=== PATIENT | male | born 1985 | race Caucasian/White ===

== ENCOUNTER 2018-02-03 19:51 | Emergency (ER) | payer OTHER ==
[2018-02-03] MEDS ORDERED: Ondansetron 4 MG Tab.DIS PO ONE (20:45)
--- NOTE | 2018-02-03 21:20 | EDM.PDOC ---
ED HPI GENERAL MEDICAL PROBLEM - General Chief Complaint: Abdominal Pain Stated Complaint: ABD PAINS Time Seen by Provider: 02/03/18 20:30 Source of Information: Reports: Patient, Family History Limitations: Reports: No Limitations - History of Present Illness INITIAL COMMENTS - FREE TEXT/NARRATIVE: 32-year-old male who developed some abdominal cramping and one episode of diarrhea about 5 hours ago, and developed some upper abdominal pressure radiating to the back and vomited once. He then came into the emergency room. He looks comfortable but still says he has some abdominal cramping, feels full, with some mild nausea. He has been exposed to some coworkers who have had gastrointestinal flu , but he is concerned that it seems at least once a month he has one night where he struggles with abdominal pain and cramps that last all night until the next day. He has never brought this up with his primary provider, he does not take any antacids or other medications. The only surgery he's had was a hernia surgery when he was a baby. Onset: Today Duration: Hour(s): (5 hours ago) Location: Reports: Abdomen Quality: Reports: Ache, Pressure, Other (Cramping) Severity: Mild (Especially upper abdomen) Associated Symptoms: Reports: Malaise, Nausea/Vomiting, Other (Some radiation of pain to his back). Denies: Chest Pain, Cough, Fever/Chills, Shortness of Breath Abdomen Pain Score (Numeric/FACES): 5 - Related Data Allergies Allergy/AdvReac Type Severity Reaction Status Date / Time No Known Allergies Allergy Verified 02/03/18 20:12 Home Meds: Home Meds NK [No Known Home Meds] 02/03/18 [History] Past Medical History HEENT History: Reports: Impaired Vision Respiratory History: Reports: Asthma Gastrointestinal History: Reports: Other (See Below) Other Gastrointestinal History: Recent episodes of abdomenal cramping past 2months. Genitourinary History: Reports: Other (See Below) Other Genitourinary History: past uti Musculoskeletal History: Reports: Fracture Other Musculoskeletal History: fx l wrist - Past Surgical History HEENT Surgical History: Reports: Tonsillectomy Social & Family History - Tobacco Use Smoking Status *Q: Never Smoker Second Hand Smoke Exposure: No - Caffeine Use Caffeine Use: Reports: Coffee, Soda - Alcohol Use Days Per Week of Alcohol Use: 0 - Recreational Drug Use Recreational Drug Use: No ED ROS GENERAL - Review of Systems Review Of Systems: See Below Constitutional: Denies: Fever, Chills Respiratory: Denies: Shortness of Breath Cardiovascular: Denies: Chest Pain GI/Abdominal: Reports: Abdominal Pain, Diarrhea, Nausea, Vomiting. Denies: Constipation, Distension : Reports: No Symptoms Musculoskeletal: Reports: No Symptoms Skin: Reports: No Symptoms Neurological: Reports: No Symptoms. Denies: Headache Psychiatric: Reports: No Symptoms ED EXAM, GI/ABD - Physical Exam Exam: See Below Exam Limited By: No Limitations General Appearance: Alert, No Apparent Distress Eyes: Bilateral: Normal Appearance (No jaundice) Throat/Mouth: Normal Inspection Head: Atraumatic Respiratory/Chest: No Respiratory Distress, Lungs Clear Cardiovascular: Regular Rate, Rhythm GI/Abdominal Exam: Normal Bowel Sounds, Soft, Other (Patient really doesn't have any significant tenderness to palpation of the abdomen) Course - Vital Signs Last Recorded V/S: Last Vital Signs Temp 94.8 F L 02/03/18 20:19 Pulse 78 02/03/18 20:19 Resp 16 02/03/18 20:19 BP 154/65 H 02/03/18 20:19 Pulse Ox 98 02/03/18 20:19 - Orders/Labs/Meds Labs: Laboratory Tests 02/03/18 02/03/18 Range/Units 20:53 20:53 WBC 11.7 H (4.5-11.0) K/uL RBC 5.07 (4.30-5.90) M/uL Hgb 15.3 H (12.0-15.0) g/dL Hct 44.5 (40.0-54.0) % MCV 88 (80-98) fL MCH 30 (27-31) pg MCHC 34 (32-36) % Plt Count 123 L (150-400) K/uL Neut % (Auto) 67 H (36-66) % Lymph % (Auto) 23 L (24-44) % [place] % (Auto) 8 H (2-6) % Eos % (Auto) 3 (2-4) % Baso % (Auto) 0 (0-1) % Sodium 143 (140-148) mmol/L Potassium 4.2 (3.6-5.2) mmol/L Chloride 106 (100-108) mmol/L Carbon Dioxide 27 (21-32) mmol/L Anion Gap 10.1 (5.0-14.0) mmol/L BUN 16 (7-18) mg/dL Creatinine 1.2 (0.8-1.3) mg/dL Est Cr Clr Drug Dosing 101.72 mL/min Estimated GFR (MDRD) > 60 (>60) Glucose 105 (74-106) mg/dL Calcium 8.9 (8.5-10.1) mg/dL Total Bilirubin 0.5 (0.2-1.0) mg/dL AST 25 (15-37) U/L ALT 44 (12-78) U/L Alkaline Phosphatase 45 L (46-116) U/L Total Protein 7.3 (6.4-8.2) g/dL Albumin 4.1 (3.4-5.0) g/dL Globulin 3.2 (2.3-3.5) g/dL Albumin/Globulin Ratio 1.3 (1.2-2.2) Meds: Medications Discontinued Medications Generic Name Dose Route Start Last Admin Trade Name Freq PRN Reason Stop Dose Admin Ondansetron HCl 4 mg 02/03/18 20:45 02/03/18 21:38 Zofran Odt PO 02/03/18 20:46 4 mg ONETIME ONE Administration - Re-Assessments/Exams Free Text/Narrative Re-Assessment/Exam: 02/03/18 21:27 Patient was given 4 mg of sublingual Zofran, and a CBC, CMP were obtained. 02/03/18 21:28 His entire chemistry profile was normal. White count was 11.7. When asked the patient to use daily Prilosec for one month and return if worsening. He was given his first 20 mg dose. A prescription for 42 additional doses to take once daily was given to the patient. He can return anytime if not improving satisfactorily. Departure - Departure Time of Disposition: 21:52 Disposition: Home, Self-Care 01 Condition: Good Clinical Impression: Abdominal pain Qualifiers: Abdominal location: upper abdomen, unspecified Qualified Code(s): R10.10 - Upper abdominal pain, unspecified - Discharge Information Instructions: Abdominal Pain, Adult, [id number] Referrals: Shikha Dela Cruz PA [Primary Care Provider] - Forms: ED Department Discharge Care Plan Goals: Take one dose of omeprazole before a meal daily for at least the next 2-3 weeks and continue if improving. Advance diet as tolerated and return anytime if worsening or you develop other concerns.
== END 2018-02-03 21:52 | disposition home or self-care (01) ==
LOC: JP.ED 19:51
DX: R10.10 Upper abdominal pain, unspecified (principal); J45.909 Unspecified asthma, uncomplicated
CPT/HCPCS: 36415; 80053; 85025; 99284; A9270

== ENCOUNTER 2018-05-12 06:04 | Day surgery (SDC) | payer OTHER ==
[2018-05-12] MEDS ORDERED: Albuterol/Ipratropium 3.0-0.5 MG/3 ML Neb Soln NEB ONE (06:27)
[2018-05-12] MEDS ORDERED: Acetaminophen 500 MG Tab PO ONE (06:28)
[2018-05-12] MEDS ORDERED: Ampicillin/Sulbactam Na 3 GM in Sodium Chloride 0.9% 100 ML IV ONE ×2 (06:28→08:30)
[2018-05-12] MEDS ORDERED: Bupivacaine 0.5%/EPINEPHrine 1:200,000 50 ML MDV ONE (06:50)
[2018-05-12] MEDS: Dextrose 5%-Lactated Ringers 1,000 ML IV SCH ×4 (07:22→22:10)
[2018-05-12] MEDS ORDERED: Glycopyrrolate 0.2 MG/ML 5 ML MDV ONE (07:30)
[2018-05-12] MEDS ORDERED: Propofol 200 MG/20 ML SDV ONE (07:30)
[2018-05-12] MEDS ORDERED: fentaNYL 250 MCG/5 ML SDV ONE (07:30)
[2018-05-12] MEDS ORDERED: Rocuronium 50 MG/5 ML Vial ONE ×2 (07:30→09:27)
[2018-05-12] MEDS ORDERED: Dexamethasone 4 MG/ML SDV ONE (07:30)
[2018-05-12] MEDS ORDERED: Neostigmine Methylsulfate 1 MG/ML 5 ML Syringe ONE (07:30)
[2018-05-12] MEDS ORDERED: Ondansetron 4 MG/2 ML SDV ONE (07:30)
[2018-05-12] MEDS ORDERED: HYDROmorphone/Normal Saline 15 MG/30 ML PCA IV PRN (07:57)
[2018-05-12] MEDS ORDERED: Naloxone 0.4 MG/ML SDV IV PRN (08:01)
[2018-05-12] MEDS ORDERED: Ketamine 500 MG/5 ML MDV IV SCH (08:30)
[2018-05-12] MEDS ORDERED: Ropivacaine 58 ML, Dexamethasone 8 MG, EPINEPHrine 0.4 MG, Sodium Chloride 0.9% 19.6 ML NERVRT SCH ×4 (08:30)
[2018-05-12] MEDS ORDERED: fentaNYL 100 MCG/2 ML SDV ONE (10:11)
[2018-05-12] MEDS ORDERED: Lactated Ringers 1,000 ML ONE (10:23)
[2018-05-12] MEDS ORDERED: Albuterol/Ipratropium 3.0-0.5 MG/3 ML Neb Soln INH PRN (12:00)
[2018-05-12] MEDS ORDERED: Ondansetron 4 MG/2 ML SDV IVPUSH PRN (12:00)
[2018-05-12] MEDS ORDERED: Pantoprazole 40 MG Vial IVPUSH SCH (14:00)
[2018-05-12] MEDS: cefOXitin 2 GM in Sodium Chloride 0.9% 50 ML IV SCH ×2 (14:32→20:28)
[2018-05-12] MEDS: Albuterol/Ipratropium 3.0-0.5 MG/3 ML Neb Soln INH SCH ×2 (14:41→20:28)
[2018-05-12] MEDS ORDERED: Montelukast 10 MG Tab PO SCH (21:00)
[2018-05-12] MEDS ORDERED: Scopolamine 1.5 MG Transdermal Patch TRDERM PRN (22:54)
[2018-05-13] MEDS: Acetaminophen/HYDROcodone 325-5 MG Tab PO PRN ×2 (02:47→06:48)
[2018-05-13] MEDS: cefOXitin 2 GM in Sodium Chloride 0.9% 50 ML IV SCH ×2 (02:47→07:05)
[2018-05-13] MEDS ORDERED: Calcium Carbonate 500 MG Tab.Chew PO PRN (05:33)
[2018-05-13] MEDS: Albuterol/Ipratropium 3.0-0.5 MG/3 ML Neb Soln INH SCH (07:27)
[2018-05-13] MEDS ORDERED: SCOPOLAMINE PATCH CHECK TOP SCH (09:00)
--- NOTE | 2018-05-13 10:13 | OR ---
DATE OF PROCEDURE: 05/12/2018 PREOPERATIVE DIAGNOSES: Subacute and chronic cholecystitis and cholelithiasis. POSTOPERATIVE DIAGNOSES: 1. Subacute and chronic cholecystitis and cholelithiasis with pericholecystic abscess/inflammatory fluid collection. 2. Incarcerated umbilical hernia. 3. Complex cystic mass, right lobe of liver. OPERATIVE PROCEDURES: Diagnostic laparoscopy with: 1. Cholecystectomy (23484). 2. Drainage of pericholecystic inflammatory fluid collection (46228). 3. Repair of incarcerated umbilical hernia (87532). 4. Partial right hepatic lobectomy for resection of complex cystic mass involving right lobe of liver (29003). ANESTHESIA: General. [employer]AP: Holly Bang PA-C and EVER Barbosa. INDICATIONS FOR PROCEDURE: A 32-year-old recently presenting with recurrent episodes of biliary colic. Ultrasound was obtained which showed a stone impacted in the gallbladder neck. Initially, we tried to treat this by dietary limitations and such, open to get through the summer while his appointment is quite busy. Now, he has been, however, having increasing problems with episodes of biliary colic and presents now for a cholecystectomy. Potential risks of the procedure including bleeding, infection, injury to underlying viscera such as common bile duct, possible migration of stones in the common bile duct requiring additional procedures for correction as well as remote possibility of cardiopulmonary, septic, or hemorrhagic complications leading to were discussed, and the patient wishes to proceed. DETAILS OF PROCEDURE: The patient was taken to the operating room and placed in a supine position. After general endotracheal anesthesia was induced, the abdomen was prepped and draped. A transverse epigastric incision was made and peritoneal cavity entered under direct vision with an Optiview trocar, inflated to 15 mmHg pressure with CO2. Laparoscope was reinserted. No underlying trocar insertion site injuries were seen. Attention was then taken to the subumbilical trocar site and palpation of this area revealed an incarcerated umbilical hernia, containing roughly a grape-sized area of incarcerated preperitoneal fat. A subumbilical incision was made and that area was dissected free and the tissue involving the hernia was then excised and sent for specimen. This allowed an easy passage of the 12 mm trocar through the fascial defect. One 5 mm trocar was then placed in the right upper quadrant area as well. As one retracted the gallbladder, some purulent material was noted posterior to the gallbladder which was associated with focal intense inflammation. This was evacuated and cultures were sent. Gallbladder itself was subacutely inflamed, being quite edematous, intensely distended. The gallbladder was initially opened up and clear bile removed, indicating a retracted portion in terms of cystic duct occlusion by the stone. This allowed retraction of the gallbladder laterally and anteriorly. Dissection was continued around the gallbladder neck and cystic duct junction, as well as the adjacent cystic artery were both identified. The cystic duct and gallbladder junction, which was immediately adjacent to the area of the impacted stone was divided with a DEANNA mendez load. The latter was used as the tissues were quite friable and it was felt clips might tear through those tissues. Following this division, the cystic artery was clipped 3 times proximally and divided with Harmonic scalpel. The gallbladder was dissected off the gallbladder bed and sent through the epigastric trocar site. This contained roughly an olive-sized size stones as expected. One additional finding was that of a complex cystic lesion which appeared to be multifocal and looked quite sclerotic over the right hepatic lobe and somewhat less in the right inferior lateral angle of the liver at that level. No additional cystic lesions were seen and based on the appearance, it was felt to be best resected to rule out any neoplastic changes. A partial right hepatic lobectomy which included removal of the cyst intact, was then accomplished with a series of DEANNA black and purple chris. The specimen was then placed in a specimen bag and delivered for pathologic review. The staple lines were then reinforced with electrocautery until no bleeding was seen and then reinforced with fibrin sealant. At this point, no further problems were noted. The camera port was then brought up to the gastric site again and the repair of the umbilical hernia was accomplished with a series of 0 Ethibond sutures placed in the fascia, closing this in a transverse orientation. A Dwain-Higginbotham drain was then placed through the right lateral trocar site and positioned in the gallbladder bed at the area of the liver resection, and the remaining trocars were removed. The fascia at that level was closed with 0 Vicryl stitch and the skin at each incision with 4-0 Vicryl skin stitch, drains fixed with 4-0 Vicryl stitch as well. The patient was taken to the recovery room in satisfactory condition. Physician project assistant, Holly Bang, played an essential role in assisting in this case, helping to position the patient, retract structures as needed as well as suturing and cutting sutures when indicated. Her presence improved the patient's safety and decreased operative time. Sin Sandoval MD Job #: [id number]
--- NOTE | 2018-05-13 14:05 | DISCH ---
ADMISSION DIAGNOSES: Subacute chronic cholecystitis and cholelithiasis. DISCHARGE DIAGNOSES: Diagnostic laparoscopy with cholecystectomy, drainage of pericholecystic infected fluid collection, repair of incarcerated umbilical hernia, partial right hepatic lobectomy, resection of complex cystic lesion of liver for subacute chronic cholecystitis and cholelithiasis, incarcerated umbilical hernia, purulent pericholecystic inflammatory fluid collection, and complex cystic lesion right lobe of liver. HISTORY: Rupert Hamilton is a 32-year-old male with right upper quadrant abdominal pain. After preoperative evaluation and discussion of possible risks and possible complications, he wished to proceed with surgical procedure. HOSPITAL COURSE: Rupert had his surgery on 05/12/2018. He had no operative complications. On postoperative day #1, vital signs were stable, pain was managed, his activity was good, and oral intake was adequate. He was able to be discharged to home. PHYSICAL EXAMINATION: GENERAL: Rupert Hamilton is a 32-year-old male. VITAL SIGNS: Height is 6 feet 2 inches. Weight is 251 pounds. TPR is 98, 75, 18, and blood pressure 135/63. HEENT: Negative. NECK: Supple. HEART: Regular rate and rhythm. LUNGS: Clear. ABDOMEN: Incisions look good. Abdominal binder is on. NAYELY drain was removed. 4 x 4 placed over NAYELY drain site. EXTREMITIES: Without peripheral edema. DISPOSITION: Discharged to home. CONDITION: Stable and improving. FOLLOWUP: Followup appointment with Holly Bang PA-C, at [facility] on 05/22/2018 at 10 a.m. DISCHARGE MEDICATIONS: New Prescriptions: [place] 5/325 mg 1 to 2 tabs every 4 hours p.r.n. pain, #30. DISCHARGE DIET: Usual diet as tolerated. Drink 8 to 10 glasses of water a day. ACTIVITY: No lifting more than 10 pounds for 2 weeks[address], do not drive while on pain medication. Shower/bathing, may shower. Keep site clean and dry. Wear abdominal binder for 2 weeks and then as tolerated. DISCHARGE INSTRUCTIONS: Special instruction, use incentive spirometer 10 times every hour while awake for one week.
== END 2018-05-13 09:21 | disposition home or self-care (01) ==
LOC: JP.SDS 06:04 → JP.2SS 10:40 → JP.SDS 05-13 09:21
PROVIDERS: ATTEND Surgery
DX: K80.12 Calculus of gallbladder with acute and chronic cholecystitis without obstruction (principal); K42.0 Umbilical hernia with obstruction, without gangrene; R16.0 Hepatomegaly, not elsewhere classified; K76.0 Fatty (change of) liver, not elsewhere classified; E66.3 Overweight; Z68.32 Body mass index [BMI] 32.0-32.9, adult; J30.9 Allergic rhinitis, unspecified; Z79.51 Long term (current) use of inhaled steroids
CPT/HCPCS: 36415; 47120; 47562; 49020; 49653; 82247; 84075; 85025; 87070; 87075; 87205; 94640; 94762; A9270; C9113; J0171; J0295; J0694; J1100; J1170; J2405; J2704; J2710; J2795; J3010; J7030; J7042; J7050; J7120; J7620; 88302; 88304; 88307; 88313